=== PATIENT | female | born 1960 | race Caucasian/White ===

== ENCOUNTER 2023-05-06 09:44 | Outpatient (CLI) | payer OTHER, SELFPAY | END 2023-05-06 09:45 | disposition home or self-care (01) | PROVIDERS: PCP Family Medicine; Visit Provider Family Medicine | DX: E78.00 Pure hypercholesterolemia, unspecified (principal); I49.9 Cardiac arrhythmia, unspecified | CPT/HCPCS: 80053; 80061 ==

== ENCOUNTER 2023-05-13 07:04 | Outpatient (CLI) | payer OTHER, SELFPAY ==
--- NOTE | 2023-05-13 07:15 | CRLHL7_ITS ---
For Patients: As a result of the Century Cures Act, medical imaging exams and procedure reports are released immediately into your electronic medical record. You may view this report before your referring provider. If you have questions, please contact your health care provider. INDICATION: Abnormal lab values COMPARISON: none TECHNIQUE: Real time joseph scale imaging and color Doppler analysis was performed of the right upper quadrant. FINDINGS: The patient`s liver is of normal size and has mildly heterogeneous echogenicity. There is a normal appearance of the hepatic IVC and proximal abdominal aorta. There is no evidence of ascites. The gallbladder is of normal size and there is no evidence of intraluminal stones or sludge. The gallbladder wall measures 2 mm in thickness. The common bile duct is of normal size and measures 4 mm in diameter at the level of the darlene hepatis. The pancreas appears normal. There is no evidence of a stone or hydronephrosis within the right kidney. The right kidney measures 11.3 cm in length. IMPRESSION: Slight heterogeneity of the liver echotexture without intrahepatic mass. Remainder normal. Dictated by Mane Villegas MD @ 05/13/2023 11:57:11 AM (Electronically Signed)
== END 2023-05-13 07:05 | disposition home or self-care (01) ==
LOC: US 07:04
PROVIDERS: PCP Family Medicine; Visit Provider Family Medicine
DX: R79.89 Other specified abnormal findings of blood chemistry (principal)
CPT/HCPCS: 76705